=== PATIENT | female | born 1980 | race Caucasian/White ===

== ENCOUNTER → 2017-07-23 | Outpatient (CLI) | payer OTHER ==
[~2017-07-23] MED LIST: AMLODIPINE BESY10 MG PO; CLONIDINE0.1 PO; COZAAR 25 MG TA25 M1 PO; INSULIN PUMP; LEVEMIR SUBQ; LISINOPRIL; MAXZIDE-25 MG1 EACH PO; METOPROLOL; NORCO 5-325 TA1 EACH PO; NOVOLIN N100 UNIT/1 SQ; PRINIVIL20 MG PO; PROCARDIA XL60 MG PO; TESSALON PERLE100 MG PO; ZOFRAN ODT4 MG SUBLING
== END ==
LOC: SLEEPLAB 12:38
DX: G47.33 Obstructive sleep apnea (adult) (pediatric) (principal); I10 Essential (primary) hypertension; E78.00 Pure hypercholesterolemia, unspecified